=== PATIENT | male | born 1995 | race Asian ===

== ENCOUNTER 2019-12-01 01:30 | Emergency (ER) | payer OTHER ==
[~2019-12-01] VITALS: Ht 177.8 cm; Wt 56.7 kg
[2019-12-01 02:15] VITALS: BP_SYST 146
--- NOTE | 2019-12-01 02:45 | NUR ---
Patient to ER ch1 for evaluation. Side rails up. Report given to Derek SAUL.
--- NOTE | 2019-12-01 02:49 | NUR ---
Patient was BIB c/o fever, bodyaches, cough x 1 hour. Pt had taken tylenol about a few hours ago. Pt denies N/V, diarrhea. No other injurie/complaints per patient or noted.
--- NOTE | 2019-12-01 03:01 | NUR ---
ER Dr. Barrett at bedside examining patient.
[2019-12-01] MEDS ORDERED: ACETAMINOPHEN 325 MG TABLET PO ONE (03:15)
[2019-12-01] MEDS ORDERED: OSELTAMIVIR PHOSPHATE 75 MG CAPSULE PO ONE (03:15)
[2019-12-01 03:52] VITALS: BP_SYST 133
--- NOTE | 2019-12-01 03:52 | NUR ---
Patient given written and verbal discharge instructions and verbalizes understanding. ER MD Barrett discussed with patient the results and treatment provided. Patient in stable condition. ID arm band removed. Rx of Tamiflu given. Patient educated on pain management and to follow up with PMD. Pain Scale 0. Opportunity for questions provided and answered. Medication side effect fact sheet provided.
== END 2019-12-01 03:52 | disposition home or self-care (01) ==
LOC: SED 01:30
DX: J11.1 Influenza due to unidentified influenza virus with other respiratory manifestations (principal)
CPT/HCPCS: 71046; 86710; 99284; G9035; 36415